=== PATIENT | male | born 1975 | race Caucasian/White ===

== ENCOUNTER 2017-03-06 19:53 | Emergency (ER) | payer BC ==
[~2017-03-06] VITALS: Ht 175.3 cm; Wt 90.9 kg
[2017-03-06] MEDS ORDERED: PERCOCET 5/31 TABLET PO (22:56)
[2017-03-06] MEDS ORDERED: LIDODERM 5% P1 PATCH TD (22:56)
[2017-03-06] MEDS ORDERED: MEDROL DOSEPAK4 MG PO (22:56)
[2017-03-07 00:10] VITALS: BP 141/98
== END 2017-03-06 23:33 | disposition home or self-care (01) ==
LOC: EME 19:53
DX: M54.42 Lumbago with sciatica, left side (principal); E78.00 Pure hypercholesterolemia, unspecified; F17.200 Nicotine dependence, unspecified, uncomplicated
CPT/HCPCS: 72100; 99281; 99282; J1170; J7512

== ENCOUNTER 2018-03-03 04:30 | Emergency (ER) | payer BC ==
[~2018-03-03] VITALS: Ht 177.8 cm; Wt 88.6 kg
[~2018-03-03 04:30] MED LIST: LIDODERM 5% P1 PATCH TD; MEDROL DOSEPAK4 MG PO; PERCOCET 5/31 TABLET PO
[2018-03-03 04:54] LABS: HEMATOCRIT 39.3 % (38.0-50.0); HEMOGLOBIN 13.3 G/DL (12.5-16.6); MCH 31.4 PG (29.0-34.0); MCHC 33.8 G/DL (30.0-36.0); MCV 92.7 FL (86-99); PLATELET COUNT 244 K/uL (156-360); RBC DIS.WIDTH-SD 44.1 % (39-53); RED BLOOD COUNT 4.24 M/uL (4.00-5.50); WHITE BLOOD COUNT 18.6 K/uL (4.1-10.2)
[2018-03-03 05:08] LABS: ALBUMIN 4.4 g/dL (3.2-4.8); CHLORIDE 108 mEq/L (99-109); POTASSIUM 3.4 mEq/L (3.7-5.4); SODIUM 140 mEq/L (136-147)
[2018-03-03 05:10] LABS: GLUCOSE 131 mg/dL (70-99)
[2018-03-03 05:11] LABS: TOTAL PROTEIN 6.7 g/dL (6.4-8.3)
[2018-03-03 05:12] LABS: TOTAL BILIRUBIN 0.9 mg/dL (0.0-1.0)
[2018-03-03 05:14] LABS: ALKALINE PHOSPHATASE 46 IU/L (3-129); GFR ESTIMATE (CALCULATED) > 59 mL/min/ (58.99-99999)
[2018-03-03 05:15] LABS: UREA NITROGEN (BUN) 15 mg/dL (9-23)
[2018-03-03 05:16] LABS: AST (GOT) 18 IU/L (2-34)
[2018-03-03 05:17] LABS: ALT (GPT) 28 IU/L (3-49)
[2018-03-03 05:31] LABS: APPEARANCE CLOUDY ((CLEAR)); BILIRUBIN NEGATIVE; BLOOD LARGE; COLOR YELLOW ((YELLOW)); GLUCOSE (STRIP) NEGATIVE; KETONES NEGATIVE; LEUKOCYTES NEGATIVE; NITRITE NEGATIVE; PROTEIN (STRIP) 30; SPECIFIC GRAVITY 1.031 (1.000-1.030)
[2018-03-03] MEDS ORDERED: FLOMAX0.4 MG PO (05:36)
[2018-03-03] MEDS ORDERED: ZOFRAN ODT4 MG PO (05:36)
[2018-03-03] MEDS ORDERED: PERCOCET 5/31 TABLET PO (05:36)
[2018-03-03 06:24] LABS: BACTERIA NONE SEEN /HPF; CALCIUM OXALATE CRYSTALS 4+ /HPF; EPITHELIAL CELLS NONE SEEN /HPF; MUCUS 4+ /LPF; RED BLOOD CELLS TNTC /HPF (0-5); UCUL ADDED? YES; WHITE BLOOD CELLS 0-5 /HPF (0-5)
[2018-03-03 07:09] VITALS: BP 162/114
== END 2018-03-03 07:10 | disposition home or self-care (01) ==
LOC: EME 04:30
DX: N20.1 Calculus of ureter (principal); I10 Essential (primary) hypertension; E78.5 Hyperlipidemia, unspecified; Z87.891 Personal history of nicotine dependence
CPT/HCPCS: 74176; 80053; 81003; 85027; 87086; 99281; 99284; J1885